=== PATIENT | female | born 1955 | race Caucasian/White ===

== ENCOUNTER → 2016-05-02 | Outpatient (CLI) | payer MEDICARE, MEDICAID ==
[~2016-05-02] MED LIST: AMIT50TA3 PO; DIAZ10TA3 PO; DULO60CA PO; ENA10T PO; ESOM40CA39 PO; FERR-7 PO; FURO40TA4 PO; GLIP-116 PO; HYDR-4072 PO; IOHEXOL 350 MG/ML 100ML IJ ONE; LACT10SO PO; METF-312 PO; METR500T PO; NITR0.4S29 SL; NYS15TP TOP; OXYC-632 PO; POTA8TAB2 PO; RANO1000 PO; SULF400T11 PO; [UNRECOGNIZED DRUG - CODE] IV; [UNRECOGNIZED DRUG - CODE] PO
[2016-05-02 11:30] VITALS: BP 107/67
== END | disposition home or self-care (01) ==
LOC: Rad HDHVI 11:03
PROVIDERS: ATTEND Internal Medicine Cardiovascular Disease
DX: I73.89 Other specified peripheral vascular diseases (principal); I77.6 Arteritis, unspecified; M86.8X8 Other osteomyelitis, other site; I35.0 Nonrheumatic aortic (valve) stenosis
CPT/HCPCS: 75635; Q9967; 96374

== ENCOUNTER → 2016-08-01 | Outpatient (CLI) | payer MEDICARE, MEDICAID ==
[~2016-08-01] MED LIST changes: +READI-CAT 2 (BARIUM SULF)(VANILLA SMOOTHIE) 450ML ONE
[2016-08-01 09:15] VITALS: BP 137/82
[2016-08-01 10:10] VITALS: BP 143/77
[2016-08-01 16:45] LABS: Albumin 3.7 g/dL (3.4-5.0); BUN/Creatinine Ratio 13.6; Calcium 9.3 mg/dL (8.5-10.1)
[2016-08-01 16:48] LABS: Bilirubin, Total 0.2 mg/dL (0.2-1.0)
[2016-08-01 16:52] LABS: Basophils # (auto) 0 uL; Basophils % (auto) 0.6 % (0.0-2.0); Eosinophils # (auto) 0.1 uL; Eosinophils % (auto) 2.3 % (0.0-7.0); Hematocrit 41.1 % (36.0-46.0); Hemoglobin 13.4 g/dL (12.2-16.2); Lymphocytes # (auto) 2.5 uL; Lymphocytes % (auto) 40.2 % (10.0-50.0); Mean Corpuscular Hemoglobin 27.7 pg (28.0-32.0); Mean Corpuscular Hgb Conc. 32.5 g/dL (32.0-36.0); Mean Corpuscular Volume 85.2 fL (80.0-100.0); Mean Platelet Volume 7.9 fL (7.4-10.4); Monocytes # (auto) 0.6 uL; Monocytes % (auto) 9.5 % (0.0-12.0); Neutrophils # (auto) 2.9 uL; Neutrophils % (auto) 47.4 % (37.0-80.0); Platelet Count (auto) 331 10^3/uL (140-450); Red Cell Distribution Width 14.4 % (11.6-16.0); White Blood Cell 6.2 10^3/uL (4.4-10.8)
== END | disposition home or self-care (01) ==
LOC: Rad HDHVI 09:01
PROVIDERS: ATTEND Internal Medicine Cardiovascular Disease
DX: I10 Essential (primary) hypertension (principal); E11.9 Type 2 diabetes mellitus without complications; D64.9 Anemia, unspecified
CPT/HCPCS: 36415; 71260; 74177; 80053; 83036; 85025; G0463

== ENCOUNTER → 2017-01-15 | Outpatient (CLI) | payer MEDICARE, MEDICAID ==
[~2017-01-15] MED LIST changes: -LACT10SO PO; +LACT10SO3 PO; -METF-312 PO; +METF-370 PO; -READI-CAT 2 (BARIUM SULF)(VANILLA SMOOTHIE) 450ML ONE
[2017-01-15 10:05] VITALS: BP 125/74
[2017-01-15 10:45] VITALS: BP 126/67
== END | disposition home or self-care (01) ==
LOC: Rad HDHVI 09:51
PROVIDERS: ATTEND Internal Medicine Cardiovascular Disease
DX: J44.9 Chronic obstructive pulmonary disease, unspecified (principal); E11.9 Type 2 diabetes mellitus without complications; R91.1 Solitary pulmonary nodule; F32.9 Major depressive disorder, single episode, unspecified; K43.9 Ventral hernia without obstruction or gangrene; C44.90 Unspecified malignant neoplasm of skin, unspecified
CPT/HCPCS: 82565; G0463; Q9967; 96374